=== PATIENT | male | born 1980 | race Two or more races ===

== ENCOUNTER 2024-05-02 17:46 | Inpatient (IN) | payer MEDICAID, OTHER ==
[~2024-05-02] VITALS: Ht 170.2 cm; Wt 79.4 kg
--- NOTE | 2024-05-02 19:26 | DVH ---
EXAM: CT CT R FOOT WO CONTRAST INDICATION: Rule out osteomyelitis of the heel EXAM DATE: 05/02/2024 06:54 PM COMPARISON: None TECHNIQUE: Multiple axial CT images of the right foot were obtained using bone algorithm. Axial and c oronal reformatting was done. Bone and soft tissue windows were reviewed. Radiation Dose Information: CT Dose: CTDI volume is 7.75 mGy. Dose-length product is 183.8 mGy*cm Findings Impression: Limited evaluation given noncontrast technique. There is no evidence of an acute fracture, dislocation, osseous erosions, blastic, or lytic lesions. No radiopaque foreign bodies. No joint effusion, focal fluid collections, or subcutaneous emphysema. Small right heel soft tissue ulcer with mild edema.
[2024-05-02 19:27] LABS: Basophils # (auto) 0.1 10 ^3/uL (0-0.2); Eosinophils # (auto) 0.1 10 ^3/uL (0-0.8); Hematocrit 41.5 % (41.0-53.0); White Blood Cell 9.7 10^3/uL (4.4-10.8)
[2024-05-02 19:28] LABS: Basophils % (auto) 0.6 % (0.0-2.0); Eosinophils % (auto) 0.8 % (0.0-7.0); Hemoglobin 13.5 g/dL (13.5-17.5); Lymphocytes # (auto) 1.8 10 ^3/uL (0.4-5.4); Mean Corpuscular Hemoglobin 27.3 pg (28.0-32.0); Mean Corpuscular Hgb Conc. 32.5 g/dL (32.0-36.0); Mean Corpuscular Volume 83.9 fL (80.0-100.0); Monocytes % (auto) 10.4 % (0.0-12.0); Neutrophils # (auto) 6.7 10 ^3/uL (1.6-8.6); Neutrophils % (auto) 69.2 % (37.0-80.0); Platelet Count (auto) 474 10^3/uL (140-450); Red Blood Cells 4.95 10^6/uL (4.5-5.90)
[2024-05-02 19:29] LABS: Red Cell Distribution Width 20.5 % (11.8-14.3)
[2024-05-02 19:41] LABS: Albumin 4.4 g/dL (3.2-4.8); Anion Gap 9 (5-15); Aspartate Aminotransferase 28 U/L (13-40); BUN/Creatinine Ratio 24.4 (10.0-20.0); Blood Urea Nitrogen 11 mg/dL (9-23); Calcium 9.8 mg/dL (8.7-10.4); Carbon Dioxide 30 mmol/L (20-31); Chloride 103 mmol/L (98-107); Glucose 90 mg/dL (74-106); Lipase 29 U/L (12-53); Potassium 3.8 mmol/L (3.5-5.1); Sodium 142 mmol/L (136-145); Total Protein 7.1 g/dL (5.7-8.2)
[2024-05-02 19:42] LABS: Alanine Aminotransferase 57 U/L (7-40); Alkaline Phosphatase 154 U/L (46-116); Bilirubin, Total 0.3 mg/dL (0.2-1.0)
[2024-05-02] MEDS: ONDANSETRON ODT 4 MG TAB PO ONE (19:43)
[2024-05-02 19:44] LABS: Lactic Acid w/Reflex 3.4 mmol/L (0.4-2.0)
[2024-05-02] MEDS: HYDROmorphone HCL 2 MG/ML VL/or syr IM ONE (19:44)
[2024-05-02] MEDS: SODIUM CHLORIDE 0.9% 2,000 ML IV ONE (20:21)
[2024-05-02] MEDS: KETOROLAC TROMETH 30 MG/ML 1ML VIAL IM ONE (20:37)
[2024-05-02 21:02] LABS: Urine Bacteria None Seen /hpf (None Seen)
[2024-05-02 21:49] LABS: Urine Blood 3+ /uL (Negative); Urine Clarity Ex.Turbid (Clear); Urine Color Light-Orange (Yellow); Urine Mucus FEW (None Seen); Urine Protein, UAD 3+ (Negative); Urine Specific Gravity 1.035 (1.001-1.035); Urine Squamous Epithelial Cell None Seen /hpf (<5); Urine Urobilinogen 2 mg/dL (Negative); Urine WBC 45 /HPF (0-3)
[2024-05-02 21:50] LABS: Opiate Scree,Urine Neg (NEGATIVE)
[2024-05-02 21:51] LABS: Amphetamine Screen, Urine Neg (NEGATIVE); Barbiturate Scree,Urine Neg (NEGATIVE); Benzodiazephine Screen, Urine Pos (NEGATIVE); Cannabinoid Screen, Urine Pos (NEGATIVE); Cocaine Screen, Urine Neg (NEGATIVE); Phencyclidine Screen, Urine Neg (NEGATIVE)
--- NOTE | 2024-05-02 22:12 | ED.PDOC ---
History of Present Illness HPI Comments This patient is a 43-year-old paraplegic male who arrives the ED today for evaluation of his right heel wound concerns that has been ongoing for months as well as abdominal pain for the past few days.. Patient has a longstanding wound to the right heel and utilize his home health, but they advised that he come to the ED for evaluation as the wound has worsened and blackened. Patient appears to be in poor overall health. Patient additionally complained of a wound VAC to his lower back that has been in for some time. Patient denies any fever nausea or vomiting. Patient was tachycardic at arrival. Chief Complaint: Wound Check Time Seen by MD: 18:30 Primary Care Provider: none Reviewed Notes: Nurses Notes Allergies: Coded Allergies: NO KNOWN ALLERGIES (Unverified , 05/02/24) Information Source: Patient Mode of Arrival: Wheelchair Severity: Moderate Timing: Months Duration: Since onset Prehospital treatment: None Past Medical History PAST MEDICAL HISTORY: Denies Past Medical History (Other): Patient is a paraplegic and patient has been dealing with pressure sores and heel wounds for some time. Surgical History: Denies all surgeries Family History Family History: Reviewed,noncontributory to illness, No family hx of Cancer, No family hx of DM, No family hx of Heart shilo, No family hx of HTN, No family hx ofKidney shilo, No family hx of Liver shilo, No family hx of Lung shilo, No family hx of Stroke Social History Smoker: Non-Smoker Alcohol: Denies ETOH Use Drugs: Denies Drug Use Lives In: Home Constitutional: reports: fatigue, weakness; denies: chills, diaphoresis, fever, malaise, sweats, others EENTM: denies: blurred vision, double vision, ear bleeding, ear discharge, ear drainage, ear pain, ear ringing, eye pain, eye redness, hearing loss, mouth pain, mouth swelling, nasal discharge, nose bleeding, nose congestion, nose pain, photophobia, tearing, throat pain, throat swelling, voice changes, others Respiratory: denies: cough, hemoptysis, orthopnea, SOB at rest, shortness of breath, SOB with excertion, stridor, wheezing, others Cardiovascular: denies: chest pain, dizzy spells, diaphoresis, Dyspnea on exertion, edema, irregular heart beat, left arm pain, lightheadedness, palpitations, PND, syncope, others Gastrointestinal: reports: abdominal pain; denies: abdomen distended, blood streaked bowels, constipated, diarrhea, dysphagia, difficulty swallowing, hematemesis, melena, nausea, poor appetite, poor fluid intake, rectal bleeding, rectal pain, vomiting, others Genitourinary: denies: burning, dysuria, flank pain, frequency, hematuria, incontinence, penile discharge, penile sore, pain, testicle pain, testicle swelling, urgency, others Neurological: denies: dizziness, fainting, headache, left sided numbness, left sided weakness, numbness, paresthesia, pre-existing deficit, right sided numbness, right sided weakness, seizure, speech problems, tingling, tremors, weakness, others Musculoskeletal: reports: others (Right heel pain with wound); denies: back pain, gout, joint pain, joint swelling, muscle pain, muscle stiffness, neck pain Integumetry: denies: bruises, change in color, change in hair/nails, dryness, laceration, lesions, lumps, rash, wounds, others Allergic/Immunocompromised: denies: Difficulty Healing, Frequent Infections, Hives, Itching, others Hematologic/Lymphatic: denies: anemia, blood clots, easy bleeding, easy bruising, swollen glands, others Endocrine: denies: excessive hunger, excessive sweating, excessive thirst, excessive urination, flushing, intolerance to cold, intolerance to heat, unexplained weight gain, unexplained weight loss, others Psychiatric: denies: anxiety, bipolar disorder, depression, hopeless, panic di sorder, schizophrenia, sleepless, suicidal, others Physical Exam General Appearance: Moderate Distress (Patient is a moderate distress due to heel pain concerns and abdominal issues.), Normal HEENT: Normal ENT Inspection, Pharynx Normal, TMs Normal Neck: Full Range of Motion, Non-Tender, Normal, Normal Inspection Respiratory: Chest Non-Tender, Lungs Clear, No Accessory Muscle Use, No Respiratory Distress, Normal Breath Sounds Cardiovascular: No Edema, No JVD, No Murmur, No Gallop, Normal Peripheral Pulses, Regular Rate/Rhythm Breast Exam: Deferred Gastrointestinal: Other (Diffuse nonspecific abdominal pain. No pulsatile masses. Abdomen was reasonably soft.) Genitalia: Deferred Pelvic: Deferred Rectal: Deferred Extremities: Other (Patient has bilateral foot concerns with a right heel that displays necrosis and erythema. Wound is mildly weeping.) Musculoskeletal : Apperance: Normal Neurologic: Alert, No Motor Deficits, Normal Affect, Normal Mood, No Sensory Deficits Cerebellar Function: NOT DONE Reflexes: NOT DONE Skin: Dry, Normal Color, Warm, Wounds (Patient has a wound VAC to a pressure wound on his lower back.) Lymphatic: No Adenopathy Was a procedure done? Was a procedure done?: No Differential Dx Considerations may include: Osteomyelitis, cellulitis, abdominal pain, skin infection X-Ray, Labs, Meds, VS Vital Signs Date Time Temp Pulse Resp B/P (MAP) Pulse Ox O2 Delivery O2 Flow Rate FiO2 05/02/24 20:29 109 19 104/72 05/02/24 19:53 126 19 96 Room Air 05/02/24 19:53 98.7 126 19 109/73 (85) 96 98.7 05/02/24 19:44 126 19 109/73 05/02/24 18:20 97.6 118 17 117/75 (89) 98 Lab Test 05/02/24 21:04 05/02/24 20:30 05/02/24 19:14 Range/Units Lactic Acid Level 1.6 3.4 *H 0.4-2.0 mmol/L Urine Color Light-orange Yellow Urine Clarity Ex.turbid Clear Urine pH 6.0 5.0-9.0 Urine Specific [place] 1.035 1.001-1.035 Urine Protein 3+ H Negative Urine Ketones Trace Negative Urine Blood 3+ H Negative /uL Urine Nitrite Negative Negative Urine Bilirubin Negative Negative Urine Urobilinogen 2 H Negative mg/dL Urine Leukocyte Esterase Trace Negative /uL Urine RBC 4530 0 - 3 /hpf Urine Microscopic WBC 45 H 0-3 /HPF Urine Squamous Epithelial Cells None seen <5 /hpf Urine Bacteria None seen None Seen /hpf Urine Mucus Few None Seen Urine Glucose Normal Normal mg/dL Urine Opiates Screen Neg NEGATIVE Urine Fentanyl Screen Neg NEGATIVE Urine Barbiturates Screen Neg NEGATIVE Urine Phencyclidine Screen Neg NEGATIVE Urine Amphetamines Screen Neg NEGATIVE Urine Benzodiazepines Screen Pos NEGATIVE Urine Cocaine Screen Neg NEGATIVE Urine Cannabinoids Screen Pos NEGATIVE White Blood Count 9.7 4.4-10.8 10^3/uL Red Blood Count 4.95 4.5-5.90 10^6/uL Hemoglobin 13.5 13.5-17.5 g/dL Hematocrit 41.5 41.0-53.0 % Mean Corpuscular Volume 83.9 80.0-100.0 fL Mean Corpuscular Hemoglobin 27.3 L 28.0-32.0 pg Mean Corpuscular Hemoglobin Concent 32.5 32.0-36.0 g/dL Red Cell Distribution Width 20.5 H 11.8-14.3 % Platelet Count 474 H 140-450 10^3/uL Mean Platelet Volume 7.1 6.9-10.8 fL Neutrophils (%) (Auto) 69.2 37.0-80.0 % Lymphocytes (%) (Auto) 19.0 10.0-50.0 % Monocytes (%) (Auto) 10.4 0.0-12.0 % Eosinophils (%) (Auto) 0.8 0.0-7.0 % Basophils (%) (Auto) 0.6 0.0-2.0 % Neutrophils # (Auto) 6.7 1.6-8.6 10 ^3/uL Lymphocytes # (Auto) 1.8 0.4-5.4 10 ^3/uL Monocytes # (Auto) 1.0 0-1.3 10 ^3/uL Eosinophils # (Auto) 0.1 0-0.8 10 ^3/uL Basophils # (Auto) 0.1 0-0.2 10 ^3/uL Nucleated Red Blood Cells 0.0 % Sodium Level 142 136-145 mmol/L Potassium Level 3.8 3.5-5.1 mmol/L Chloride Level 103 98-107 mmol/L Carbon Dioxide Level 30 20-31 mmol/L Anion Gap 9 5-15 Blood Urea Nitrogen 11 9-23 mg/dL Creatinine 0.45 L 0.700-1.30 mg/dL Glomerular Filtration Rate Calc 133 >90 mL/min BUN/Creatinine Ratio 24.4 H 10.0-20.0 Serum Glucose 90 74-106 mg/dL Calcium Level 9.8 8.7-10.4 mg/dL Total Bilirubin 0.3 0.2-1.0 mg/dL Aspartate Amino Transferase (AST) 28 13-40 U/L Alanine Aminotransferase (ALT) 57 H 7-40 U/L Alkaline Phosphatase 154 H 46-116 U/L Total Protein 7.1 5.7-8.2 g/dL Albumin 4.4 3.2-4.8 g/dL Lipase 29 12-53 U/L Current Medications Medications (Trade) Dose Ordered Sig/Henry Route Start Time Stop Time Status Last Admin Hydromorphone HCl (Dilaudid Injection) 0.5 mg ONCE ONCE IM 05/02/24 18:45 05/02/24 18:46 DC 05/02/24 19:44 Ondansetron HCl (Zofran Po) 4 mg ONCE ONCE PO 05/02/24 18:45 05/02/24 18:46 DC 05/02/24 19:43 Sodium Chloride 2,000 ml @ 1,000 mls/hr Q2H ONCE IV 05/02/24 20:00 05/02/24 21:59 05/02/24 20:21 Ketorolac Tromethamine (Toradol Injection) 30 mg ONCE ONCE IM 05/02/24 20:45 05/02/24 20:46 DC 05/02/24 20:37 X-Ray, Labs, Meds, VS Comment All studies performed the ED were evaluated by me personally. Laboratories revealed an elevated lactic acid and urine confirmed a urinary tract infection and hematuria concern. Additional laboratory findings remarkable transaminitis. Patient will be admitted for IV antibiotics as well as wound care to address his bilateral foot concerns. CT of the abdomen and pelvis was pending at time of this note. Patient will be started on empiric antibiotics and once results were returned, I will respond accordingly. Time of 1ST Reevaluation: 22:09 Reevaluation 1ST: Improved Consultation: PCP Patient Education/Counseling: Diagnosis, Treatment Family Education/Counseling: Diagnosis, Treatment Departure 1 Departure Time of Disposition: 22:11 Impression: Primary Impression: Cellulitis Additional Impressions: UTI (urinary tract infection) Elevated lactic acid level Transaminitis Disposition: 09 ADMITTED INPATIENT Condition: Stable Discharged With: Self Critical Care Note Critical Care Time?: No Stability Stability form required: No Heart Score Heart Score: Heart Score Response (Comments) Value History N/A 0 EKG N/A 0 Age N/A 0 Risk Factors N/A 0 Troponin N/A 0 Total 0 OLYA JOHNSON PAC May 02, 2024 22:12
[2024-05-02] MEDS: IOHEXOL 300 MG/ML 100ML BOTTLE IJ ONE (22:40)
[2024-05-02] MEDS ORDERED: ONDANSETRON HCL 4 MG/2 ML VIAL IV PRN (23:15)
[2024-05-02] MEDS ORDERED: DOCUSATE SOD 100 MG CAP PO PRN (23:15)
[2024-05-02] MEDS: PIPERACILLIN-TAZOB 3.375GM 100 ML IV ONE (23:23)
[2024-05-03] VITALS (8 sets, daily range): BP systolic 98–123; BP diastolic 64–76; PULSE 73–102; RESP 16–20; TEMP 97.4–99; O2SAT 85–96
--- NOTE | 2024-05-03 00:09 | DVH ---
CT OF THE ABDOMEN AND PELVIS WITH CONTRAST. HISTORY: Hematuria COMPARISON: None TECHNIQUE: Helical axial CT images of the abdomen and pelvis were obtained with intravenous contrast. Multiplanar reformats. One or more of the following radiation dose reduction techniques were used fo r this examination: automated exposure control, adjustment of the mA and/or kV according to patient s ize, use of iterative reconstruction technique. FINDINGS: Scattered atelectasis/ scarring in the imaged lung bases. Segmental atelectasis in the right lower l obe as well. Liver: No discrete hepatic lesions as visualized. Gallbladder and biliary system: No sizable, radiopaque cholelithiasis or biliary ductal dilatation. Pancreas: Negative. Spleen: Scattered calcifications may be from a prior infectious/inflammatory process. Adrenal Glands: Negative. Kidneys and collecting system: No hydroureteronephrosis Retroperitoneum: No evidence of abdominal aortic aneurysm. Lymph nodes: No discretely enlarged lymph nodes identified. Bowel: Left lower quadrant ostomy noted. No evidence of bowel obstruction. Moderate to large volume s tool throughout the colon. No free intraperitoneal air or fluid identified. Pelvis: Horan catheter is noted. Small amount of excreted contrast material in the dependent bladder. Intravesicular air may be from recent catheter placement/ manipulation. Osseous structures: No destructive osseous lesions identified. Degenerative changes at L5-S1. Thoraci c spine fixation hardware partially imaged. IMPRESSION: No hydroureteronephrosis. Horan catheter in place. Intravesicular air may be from recent catheter pl acement and/or manipulation. Please correlate clinically. Other findings as above.
[2024-05-03] MEDS ORDERED: MORPHINE SULFATE INJ 2 MG/ml SYRG IV PRN (03:00)
[2024-05-03] MEDS ORDERED: NITROGLYCERIN 0.4 MG SL TAB SL PRN (03:00)
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
[2024-05-03] MEDS: PIPERACILLIN-TAZOB 3.375GM 100 ML IV SCH (05:24)
[2024-05-03] MEDS: SODIUM CHLOR 0.9% PF (SALINE LOCK) 10ML VIAL/SYR IV SCH (05:24)
[2024-05-03] MEDS: ZINC SULFATE 220mg CAP or TAB PO SCH (10:06)
[2024-05-03] MEDS: ASCORBIC ACID 500 MG TAB PO SCH (10:06)
[2024-05-03] MEDS: MORPHINE SULFATE INJ 2 MG/ml SYRG IV PRN (10:24)
[2024-05-03 12:04] LABS: Basophils # (auto) 0 10 ^3/uL (0-0.2); Basophils % (auto) 0.5 % (0.0-2.0); Eosinophils # (auto) 0.2 10 ^3/uL (0-0.8); Eosinophils % (auto) 3.1 % (0.0-7.0); Hematocrit 38.4 % (41.0-53.0); Hemoglobin 12.4 g/dL (13.5-17.5); Lymphocytes # (auto) 0.9 10 ^3/uL (0.4-5.4); Lymphocytes % (auto) 14.3 % (10.0-50.0); Mean Corpuscular Hemoglobin 27.5 pg (28.0-32.0); Mean Corpuscular Hgb Conc. 32.3 g/dL (32.0-36.0); Monocytes # (auto) 0.7 10 ^3/uL (0-1.3); Monocytes % (auto) 11.9 % (0.0-12.0); Neutrophils # (auto) 4.3 10 ^3/uL (1.6-8.6); Neutrophils % (auto) 70.2 % (37.0-80.0); Nucleated Red Blood Cells % 0.1 %; Platelet Count (auto) 341 10^3/uL (140-450); Red Blood Cells 4.52 10^6/uL (4.5-5.90); Red Cell Distribution Width 21.3 % (11.8-14.3); White Blood Cell 6.1 10^3/uL (4.4-10.8)
[2024-05-03 12:23] LABS: Albumin 3.9 g/dL (3.2-4.8); Anion Gap 7 (5-15); Aspartate Aminotransferase 34 U/L (13-40); BUN/Creatinine Ratio 19.2 (10.0-20.0); Bilirubin, Total 0.5 mg/dL (0.2-1.0); Blood Urea Nitrogen 10 mg/dL (9-23); Calcium 9.7 mg/dL (8.7-10.4); Carbon Dioxide 28 mmol/L (20-31); Chloride 106 mmol/L (98-107); Potassium 3.6 mmol/L (3.5-5.1); Sodium 141 mmol/L (136-145); Total Protein 6.5 g/dL (5.7-8.2)
[2024-05-03 12:26] LABS: Alanine Aminotransferase 49 U/L (7-40); Alkaline Phosphatase 131 U/L (46-116); Glucose 112 mg/dL (74-106)
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
--- NOTE | 2024-05-03 20:20 | DVH ---
EXAMINATION: MRI MRI R FOOT WO CONTRAST TECHNIQUE: MRI of the right foot was performed without intravenous contrast. HISTORY: Osteomyelitis COMPARISON: CT CT R FOOT WO CONTRAST on DOS: 05/02/24 FINDINGS/IMPRESSION: Diffuse subcutaneous soft-tissue edema and swelling; possibly cellulitis. Moderate bone marrow edema is present at the posterior aspect of the calcaneus; nonspecific. Differe ntial considerations could include stress fracture, osteomyelitis or less likely reactive bone marrow edema from achilles tendinitis /enthesopathy. Clinical correlation advised.
[2024-05-03] MEDS: HYDROcodone-ACET 5/325MG TAB PO PRN (21:02)
[2024-05-04] VITALS (8 sets, daily range): BP systolic 94–131; BP diastolic 52–84; PULSE 70–91; RESP 16–20; TEMP 97.7–98.9; O2SAT 91–100
[2024-05-04] MEDS ORDERED: BUPR2MIS SL (00:18)
[2024-05-04] MEDS ORDERED: ALPR1TAB2 PO (00:18)
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
[2024-05-04] MEDS: ACETAMINOPHEN 325 MG TAB PO PRN (14:53)
[2024-05-05] VITALS (8 sets, daily range): BP systolic 100–126; BP diastolic 67–89; PULSE 69–94; RESP 14–19; TEMP 97.9–98.7; O2SAT 93–98
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
[2024-05-05] MEDS ORDERED: FLUCONAZOLE 200MG/100ML 100 ML IV SCH (13:00)
[2024-05-06 01:00] VITALS: BP 111/71; PULSE 81; RESP 16; TEMP 97.9; O2SAT 96
[2024-05-06 05:00] VITALS: BP 112/72; PULSE 79; RESP 16; TEMP 97.7; O2SAT 97
[2024-05-06 08:00] VITALS: RESP 18
[2024-05-06] MEDS ORDERED: FLUCONAZOLE 200MG/100ML 100 ML IV SCH (10:00)
[2024-05-06] MEDS ORDERED: CLIN1CAP70 PO (11:04)
[2024-05-06] MEDS ORDERED: FLUC200T PO (11:04)
[2024-05-06] MEDS ORDERED: OXYC-998 PO (11:04)
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
[2024-05-06 12:30] VITALS: BP 111/73; PULSE 86; RESP 16; TEMP 97.5; O2SAT 100
== END 2024-05-06 15:00 | disposition home or self-care (01) | DRG 720 ==
LOC: ER 17:46 → OVERFLOW 05-03 02:53 → WEST WING 05-03 04:40
PROVIDERS: ADMIT Family Medicine; ATTEND Family Medicine
DX: A41.9 Sepsis, unspecified organism (principal); L89.154 Pressure ulcer of sacral region, stage 4; E46 Unspecified protein-calorie malnutrition; E87.20 Acidosis, unspecified; G82.20 Paraplegia, unspecified; L98.428 Non-pressure chronic ulcer of back with other specified severity; N39.0 Urinary tract infection, site not specified; R74.01 Elevation of levels of liver transaminase levels; Z93.0 Tracheostomy status; Z68.27 Body mass index [BMI] 27.0-27.9, adult
CPT/HCPCS: 36415; 73700; 73718; 74177; 80053; 80307; 81001; 83605; 83690; 85025; 87040; 87077; 87205; 96361; 96365; 96372; 97163; G0378; J1885; J2543; Q0162

== ENCOUNTER 2024-05-19 16:02 | Emergency (ER) | payer MEDICAID ==
[~2024-05-19] VITALS: Ht 172.7 cm; Wt 63.3 kg
[~2024-05-19 16:02] MED LIST: ALPR1TAB2 PO; BUPR2MIS SL; CLIN1CAP70 PO; FLUC200T PO; OXYC-998 PO
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
[2024-05-19 18:36] LABS: Basophils # (auto) 0.1 10 ^3/uL (0-0.2); Basophils % (auto) 0.8 % (0.0-2.0); Eosinophils # (auto) 0 10 ^3/uL (0-0.8); Eosinophils % (auto) 0.5 % (0.0-7.0); Hematocrit 43.5 % (41.0-53.0); Hemoglobin 14.5 g/dL (13.5-17.5); Lymphocytes # (auto) 1.7 10 ^3/uL (0.4-5.4); Mean Corpuscular Hemoglobin 28.4 pg (28.0-32.0); Mean Corpuscular Hgb Conc. 33.3 g/dL (32.0-36.0); Mean Corpuscular Volume 85.4 fL (80.0-100.0); Monocytes # (auto) 0.6 10 ^3/uL (0-1.3); Monocytes % (auto) 6.3 % (0.0-12.0); Neutrophils # (auto) 6.9 10 ^3/uL (1.6-8.6); Neutrophils % (auto) 74.4 % (37.0-80.0); Platelet Count (auto) 532 10^3/uL (140-450); Red Cell Distribution Width 19.9 % (11.8-14.3); White Blood Cell 9.3 10^3/uL (4.4-10.8)
[2024-05-19 18:38] LABS: Chloride 101 mmol/L (98-107); Sodium 138 mmol/L (136-145)
[2024-05-19 18:39] LABS: Anion Gap 9 (5-15); Carbon Dioxide 28 mmol/L (20-31)
--- NOTE | 2024-05-19 18:43 | DVH ---
CHEST RADIOGRAPH Indication: sob Technique: Single frontal view of the chest was obtained COMPARISON: None FINDINGS: Lines and Tubes: None Lungs: Clear Pleura: No effusion. No pneumothorax. Cardiomediastinal contours: Elevation of the right hemidiaphragm. Bones: Thoracic spinal fixation hardware. IMPRESSION: No acute disease.
[2024-05-19 18:44] LABS: BUN/Creatinine Ratio 24.5 (10.0-20.0); Blood Urea Nitrogen 13 mg/dL (9-23)
[2024-05-19 18:47] LABS: Calcium 10.5 mg/dL (8.7-10.4); Glucose 109 mg/dL (74-106); Potassium 5.1 mmol/L (3.5-5.1)
[2024-05-19] MEDS: SODIUM CHLORIDE 0.9% 1,000 ML IV ONE (18:52)
[2024-05-19] MEDS: cefTRIAXone 1GM/50ML D5W 50 ML IV ONE (19:05)
[2024-05-19] MEDS ORDERED: ONDANSETRON HCL 4 MG/2 ML VIAL IV PRN (19:45)
[2024-05-19] MEDS ORDERED: MORPHINE SULFATE INJ 2 MG/ml SYRG IV PRN (19:45)
[2024-05-19] MEDS: MORPHINE SULFATE 4 MG/ML SYR/VIAL IV ONE (19:55)
[2024-05-19] MEDS: ONDANSETRON HCL 4 MG/2 ML VIAL IV ONE (19:55)
[2024-05-19] MEDS: CLINDAMYCIN 300MG IV 50 ML IV ONE (19:56)
[2024-05-19] MEDS: HYDROcodone-ACET 10/325MG TAB PO ONE (23:14)
[2024-05-19 23:15] VITALS: BP 107/74; PULSE 94; RESP 18; TEMP 98.4; O2SAT 99
== END 2024-05-19 23:29 | disposition home or self-care (01) ==
LOC: EDBD 16:02 → ER 16:02
DX: T83.098A Other mechanical complication of other urinary catheter, initial encounter (principal); L89.90 Pressure ulcer of unspecified site, unspecified stage; A41.9 Sepsis, unspecified organism; N39.0 Urinary tract infection, site not specified; G82.20 Paraplegia, unspecified; Z79.899 Other long term (current) drug therapy
CPT/HCPCS: 36415; 51702; 71045; 80048; 85025; 96365; 96367; 96375; 99284; J0696; J2270; J2405; J3490

== ENCOUNTER 2024-12-21 07:43 | Outpatient (CLI) | payer MEDICAID ==
[2024-12-21 08:19] LABS: Hematocrit 49.0 % (41.0-53.0); Hemoglobin 17.0 g/dL (13.5-17.5); Mean Corpuscular Hemoglobin 31.1 pg (28.0-32.0); Mean Corpuscular Volume 89.4 fL (80.0-100.0); Nucleated Red Blood Cells % 0.2 %
[2024-12-21 08:26] LABS: Urine Protein, UAD Negative (Negative)
[2024-12-21 08:47] LABS: Albumin 4.2 g/dL (3.2-4.8); Anion Gap 8 (5-15); BUN/Creatinine Ratio 10.6 (10.0-20.0); Bilirubin, Total 0.4 mg/dL (0.2-1.0); Calcium 9.2 mg/dL (8.7-10.4); Carbon Dioxide 28 mmol/L (20-31); Chloride 105 mmol/L (98-107); Glucose 95 mg/dL (74-106); Potassium 4.0 mmol/L (3.5-5.1); Sodium 141 mmol/L (136-145); Total Protein 7.4 g/dL (5.7-8.2)
[2024-12-21 08:49] LABS: Alanine Aminotransferase 51 U/L (7-40); Alkaline Phosphatase 215 U/L (46-116); Blood Urea Nitrogen 7 mg/dL (9-23)
== END 2024-12-21 17:00 | disposition home or self-care (01) ==
LOC: LAB 07:43
PROVIDERS: ATTEND Internal Medicine
DX: Z13.6 Encounter for screening for cardiovascular disorders (principal)
CPT/HCPCS: 36415; 80053; 81001; 82306; 82607; 85025; 85652; 86141